=== PATIENT | male | born 1960 | race African-American/Black ===

== ENCOUNTER → 2019-07-28 | Emergency (ER) | payer MEDICAID ==
[~2019-07-28] VITALS: Ht 177.8 cm; Wt 65.0 kg
[~2019-07-28] MED LIST: SODIUM CHLORIDE 0.9% 1000ML BAG (SEPSIS BOLUS) IV ONE
[2019-07-28 19:11] VITALS: BP 104/60
== END ==
LOC: ER 19:09 → CANBEDREQ 07-29 17:08
DX: J10.1 Influenza due to other identified influenza virus with other respiratory manifestations (principal)
CPT/HCPCS: 99283; J7030; 71045; 80053; 82728; 83615; 83880; 84145; 84484; 85025

== ENCOUNTER 2020-01-15 12:55 | Inpatient (IN) | payer MEDICAID, OTHER ==
[~2020-01-15] VITALS: Ht 185.4 cm; Wt 50.0 kg
[2020-01-15] MEDS ORDERED: DEXTROSE 50% WATER 50ML SYRINGE IV ONE (13:15)
[2020-01-15] MEDS ORDERED: AZITHROMYCIN 500 MG in DEXT 5% WATER 250 ML IV ONE (13:30)
[2020-01-15] MEDS ORDERED: CEFTRIAXONE 1 G PREMIX 50 ML IV ONE (13:30)
[2020-01-15 14:09] LABS: HEMATOCRIT. 35.3 % (42.0-52.0); HEMOGLOBIN. 11.9 g/dL (14.0-18.0); MEAN CORPUSCULAR HEMOGLOBIN 34.4 pg (28.0-32.0); MEAN CORPUSCULAR VOLUME 102.3 fL (80.0-94.0); MEAN PLATELET VOLUME 8.4 fl (7.4-10.4); PLATELET 322 x1000/uL (130-400); RED BLOOD CELL COUNT 3.45 mill/uL (4.7-6.1); RED CELL DISTRIBUTION WIDTH 19.1 % (11.6-14.6)
[2020-01-15 14:13] LABS: CHLORIDE 100 mEq/L (98-107)
[2020-01-15 14:15] LABS: INR 1.2; PROTHROMBIN TIME 12.8 sec (9.6-11.0)
[2020-01-15 14:21] LABS: ETHANOL BLOOD < 10 mg/dL
[2020-01-15 14:44] LABS: PLATELET ESTIMATE NORMAL
[2020-01-15] MEDS ORDERED: FUROSEMIDE 20MG/2ML VIAL IVP ONE (15:30)
[2020-01-15] MEDS ORDERED: DEXTROSE 50% WATER 50ML SYRINGE IV NR (16:15)
[2020-01-15] MEDS ORDERED: DOCUSATE SODIUM 100MG CAPSULE PO PRN (16:30)
[2020-01-15] MEDS ORDERED: CLONIDINE 0.1MG TABLET PO PRN (16:30)
[2020-01-15] MEDS ORDERED: GUAIFENESIN 200MG/10ML SUGAR FREE UDC PO PRN (16:30)
[2020-01-15] MEDS ORDERED: ONDANSETRON HCL 4MG/2ML INJ IV PRN (16:30)
[2020-01-15] MEDS: DEXT 5%/0.45% NACL 1000ML 1,000 ML IV SCH (16:56)
[2020-01-15] MEDS: MULTIVITAMINS,THER W-MINERALS TABLET PO SCH (19:01)
[2020-01-15] MEDS: ENOXAPARIN 40MG/0.4ML SYR SUBCUT SCH (19:02)
[2020-01-15] MEDS: THIAMINE HCL 100MG TABLET PO SCH (19:02)
[2020-01-15 23:35] VITALS: BP 93/70
[2020-01-16] VITALS (10 sets, daily range): BP systolic 92–115; BP diastolic 61–87
[2020-01-16] MEDS: DEXT 5%/0.45% NACL 1000ML 1,000 ML IV SCH (06:01)
[2020-01-16 06:58] LABS: MEAN CORPUSCULAR HEMOGLOBIN 34.6 pg (28.0-32.0); MEAN CORPUSCULAR VOLUME 99.9 fL (80.0-94.0); PLATELET 290 x1000/uL (130-400); RED CELL DISTRIBUTION WIDTH 19.1 % (11.6-14.6)
[2020-01-16 07:10] LABS: CHLORIDE 100 mEq/L (98-107)
[2020-01-16] MEDS: FOLIC ACID 1MG TABLET PO SCH (09:14)
[2020-01-16] MEDS: THIAMINE HCL 100MG TABLET PO SCH (09:14)
[2020-01-16] MEDS: MULTIVITAMINS,THER W-MINERALS TABLET PO SCH (09:14)
[2020-01-16 09:19] LABS: PLATELET ESTIMATE NORMAL
[2020-01-16] MEDS ORDERED: POTASSIUM CHLORIDE 20MEQ TABLET SR PO SCH ×2 (10:45→11:00)
[2020-01-16] MEDS ORDERED: POTASSIUM CHLORIDE INJ 40 MEQ in DEXT 5% WATER 250 ML IV ONE (11:00)
[2020-01-16 11:16] LABS: BG BASE EXCESS 2.6 mmol/L (-2.0-2.0); BG CARBOXYHEMOGLOBIN 0.3 % (0.5-1.5); BG DEOXYHEMOGLOBIN 4.3 % (0.0-5.0); BG FRACTION INSPIRED OXYGEN 21; BG HCO3 ACT 25.6 mmol/L (22.0-26.0); BG METHEMOGLOBIN 0.1 % (0.0-1.5); BG OXYGEN SATURATION 95.7 % (92.0-98.5); BG OXYHEMOGLOBIN 95.3 % (94.0-97.0); BG PCO2 34.1 mmHg (35.0-45.0); BG PH 7.494 (7.350-7.450); BG PO2 75.8 mmHg (75.0-100.0); BG SAMPLE SITE RIGHT BRACHIAL; BG TOTAL HEMOGLOBIN 11.2 g/dL (12.0-18.0); BG VENT MODE ROOM AIR
[2020-01-16 12:16] LABS: LDL CHOLESTEROL 18 mg/dL (5-100)
[2020-01-16 12:18] LABS: HDL CHOLESTEROL 25 mg/dL (40-59)
[2020-01-16 12:19] LABS: T4 FREE 1.32 ng/dL (0.76-1.46)
[2020-01-16] MEDS: MEROPENEM 500 MG in SODIUM CHLORIDE 0.9% 50 ML IV SCH ×2 (12:28→22:22)
[2020-01-16] MEDS: NYSTATIN 100,000 UNITS/ML 5ML UDC SSW SCH ×2 (12:28→17:50)
[2020-01-16] MEDS: ACETAMINOPHEN 325MG TABLET PO PRN (12:29)
[2020-01-16] MEDS: LORAZEPAM 2MG/ML CPJ IV PRN (12:30)
[2020-01-16] MEDS ORDERED: POTASSIUM CHLORIDE INJ 40 MEQ in DEXT 5% WATER 250 ML IV SCH (12:30)
[2020-01-16] MEDS ORDERED: CEFTRIAXONE 1 G PREMIX 50 ML IV SCH (14:00)
[2020-01-16] MEDS: AZITHROMYCIN 500 MG in DEXT 5% WATER 250 ML IV SCH (17:49)
[2020-01-16] MEDS: ENOXAPARIN 40MG/0.4ML SYR SUBCUT SCH (17:50)
[2020-01-17] MEDS: NYSTATIN 100,000 UNITS/ML 5ML UDC SSW SCH ×4 (00:36→17:48)
[2020-01-17 04:00] VITALS: BP 118/85
[2020-01-17] MEDS: DEXT 5%/0.45% NACL 1000ML 1,000 ML IV SCH ×3 (04:51→21:46)
[2020-01-17] MEDS ORDERED: ACETAMINOPHEN 325MG TABLET PO NR (05:05)
[2020-01-17] MEDS: MEROPENEM 500 MG in SODIUM CHLORIDE 0.9% 50 ML IV SCH ×3 (05:58→21:46)
[2020-01-17 07:12] LABS: HEMATOCRIT. 29.9 % (42.0-52.0); HEMOGLOBIN. 10.3 g/dL (14.0-18.0); MEAN CORPUSCULAR HEMOGLOBIN 34.6 pg (28.0-32.0); MEAN CORPUSCULAR VOLUME 100.8 fL (80.0-94.0); MEAN PLATELET VOLUME 8.4 fl (7.4-10.4); PLATELET 245 x1000/uL (130-400); RED BLOOD CELL COUNT 2.96 mill/uL (4.7-6.1); RED CELL DISTRIBUTION WIDTH 18.6 % (11.6-14.6)
[2020-01-17 07:18] LABS: CHLORIDE 101 mEq/L (98-107)
[2020-01-17 07:27] LABS: CREATINE KINASE 215 IU/L (39-308); CREATINE KINASE MB FRACTION 2.1 ng/mL (0.5-3.6)
[2020-01-17 08:00] VITALS: BP 107/83
[2020-01-17] MEDS: THIAMINE HCL 100MG TABLET PO SCH (08:38)
[2020-01-17] MEDS: MULTIVITAMINS,THER W-MINERALS TABLET PO SCH (08:38)
[2020-01-17] MEDS: FOLIC ACID 1MG TABLET PO SCH (08:38)
[2020-01-17] MEDS: ACETAMINOPHEN 325MG TABLET PO PRN (08:51)
[2020-01-17 12:00] VITALS: BP 120/86
[2020-01-17 13:51] LABS: PLATELET ESTIMATE NORMAL
[2020-01-17 16:00] VITALS: BP 120/88
[2020-01-17] MEDS: AZITHROMYCIN 500 MG in DEXT 5% WATER 250 ML IV SCH (17:00)
[2020-01-17] MEDS: ENOXAPARIN 40MG/0.4ML SYR SUBCUT SCH (17:48)
[2020-01-17 20:46] VITALS: BP 121/98
[2020-01-17 23:34] VITALS: BP 101/77
[2020-01-18] MEDS: NYSTATIN 100,000 UNITS/ML 5ML UDC SSW SCH ×4 (01:02→17:00)
[2020-01-18 04:00] VITALS: BP 95/77
[2020-01-18] MEDS: MEROPENEM 500 MG in SODIUM CHLORIDE 0.9% 50 ML IV SCH ×3 (05:29→21:22)
[2020-01-18 08:00] VITALS: BP 123/86
[2020-01-18] MEDS: MULTIVITAMINS,THER W-MINERALS TABLET PO SCH (08:44)
[2020-01-18] MEDS: THIAMINE HCL 100MG TABLET PO SCH (08:44)
[2020-01-18] MEDS: FOLIC ACID 1MG TABLET PO SCH (08:44)
[2020-01-18 12:00] VITALS: BP 116/69
[2020-01-18] MEDS ORDERED: FUROSEMIDE 40MG/4ML VIAL IVP SCH (13:30)
[2020-01-18] MEDS ORDERED: SODIUM CHLORIDE 3% FOR INH 15ML VIAL NEB INH SCH (13:30)
[2020-01-18] MEDS: DEXT 5%/0.45% NACL 1000ML 1,000 ML IV SCH (14:30)
[2020-01-18] MEDS: MICAFUNGIN 100 MG in SODIUM CHLORIDE 0.9% 100 ML IV SCH (14:32)
[2020-01-18] MEDS: AZITHROMYCIN 500 MG in DEXT 5% WATER 250 ML IV SCH (14:32)
[2020-01-18 16:00] VITALS: BP 121/69
[2020-01-18] MEDS: ATOVAQUONE 750MG/5ML ORAL SYRINGE PO SCH (17:00)
[2020-01-18] MEDS: ENOXAPARIN 40MG/0.4ML SYR SUBCUT SCH (17:00)
[2020-01-18] MEDS: ACETAMINOPHEN 325MG TABLET PO PRN (17:19)
[2020-01-18 20:00] VITALS: BP 99/50
[2020-01-18 22:00] VITALS: BP 98/52
[2020-01-19] VITALS: BP 98/52
[2020-01-19] MEDS: DEXT 5%/0.45% NACL 1000ML 1,000 ML IV SCH ×2 (00:42→15:05)
[2020-01-19] MEDS: NYSTATIN 100,000 UNITS/ML 5ML UDC SSW SCH ×5 (00:42→23:00)
[2020-01-19] MEDS: ACETAMINOPHEN 325MG TABLET PO PRN ×3 (01:22→16:14)
[2020-01-19] MEDS: LORAZEPAM 2MG/ML CPJ IV PRN ×2 (01:22→22:38)
[2020-01-19 04:00] VITALS: BP 100/52
[2020-01-19] MEDS: MEROPENEM 500 MG in SODIUM CHLORIDE 0.9% 50 ML IV SCH ×2 (05:45→15:04)
[2020-01-19 08:00] VITALS: BP 147/96
[2020-01-19] MEDS: SODIUM CHLORIDE 3% FOR INH 4ML UD NEB INH SCH (09:00)
[2020-01-19] MEDS: ATOVAQUONE 750MG/5ML ORAL SYRINGE PO SCH ×2 (09:21→17:36)
[2020-01-19] MEDS: MULTIVITAMINS,THER W-MINERALS TABLET PO SCH (09:22)
[2020-01-19] MEDS: THIAMINE HCL 100MG TABLET PO SCH (09:22)
[2020-01-19] MEDS: ENOXAPARIN 40MG/0.4ML SYR SUBCUT SCH (09:22)
[2020-01-19] MEDS: FOLIC ACID 1MG TABLET PO SCH (09:22)
[2020-01-19] MEDS: FUROSEMIDE 40MG TABLET PO SCH (09:22)
[2020-01-19 12:00] VITALS: BP 113/82
[2020-01-19] MEDS: AZITHROMYCIN 500 MG in DEXT 5% WATER 250 ML IV SCH (15:04)
[2020-01-19] MEDS: MICAFUNGIN 100 MG in SODIUM CHLORIDE 0.9% 100 ML IV SCH (15:04)
[2020-01-19 16:00] VITALS: BP 103/82
[2020-01-19 20:00] VITALS: BP 99/56
[2020-01-19] MEDS: BUDESONIDE 0.5MG/2ML NEB HHN SCH (22:05)
[2020-01-19] MEDS: CEFEPIME 1,000 MG in DEXTROSE 5% WATER 50 ML IV SCH (22:38)
[2020-01-20] VITALS: BP 100/60
[2020-01-20] MEDS: ACETAMINOPHEN 325MG TABLET PO PRN ×2 (02:10→14:30)
[2020-01-20 04:00] VITALS: BP 118/78
[2020-01-20] MEDS: KETOROLAC 15MG/ML VIAL IV PRN ×2 (05:00→08:27)
[2020-01-20] MEDS: NYSTATIN 100,000 UNITS/ML 5ML UDC SSW SCH ×5 (05:01→23:13)
[2020-01-20] MEDS: DEXT 5%/0.45% NACL 1000ML 1,000 ML IV SCH ×2 (05:01→17:15)
[2020-01-20 08:00] VITALS: BP 110/85
[2020-01-20] MEDS: FUROSEMIDE 40MG TABLET PO SCH (08:26)
[2020-01-20] MEDS: FOLIC ACID 1MG TABLET PO SCH (08:26)
[2020-01-20] MEDS: MULTIVITAMINS,THER W-MINERALS TABLET PO SCH (08:26)
[2020-01-20] MEDS: ATOVAQUONE 750MG/5ML ORAL SYRINGE PO SCH ×2 (08:26→17:15)
[2020-01-20] MEDS: THIAMINE HCL 100MG TABLET PO SCH (08:26)
[2020-01-20 09:06] LABS: ABSOLUTE LYMPHOCYTES 0.3 x10E3/uL (0.7-3.1); ABSOLUTE MONOCYTES 0.2 x10E3/uL (0.1-0.9); ABSOLUTE NEUTROPHILS 3.7 x10E3/uL (1.4-7.0); BASOPHILS 0 % (Not Estab.); HEMATOCRIT 31.6 % (37.5-51.0); HEMATOLOGY COMMENT Note: (.); IMMATURE GRANULOCYTES 1 % (Not Estab.); LYMPHOCYTES 6 % (Not Estab.); MEAN CORPUSCULAR HEMOGLOBIN 32.6 pg (26.6-33.0); MEAN CORPUSCULAR HGB CONC. 34.8 g/dL (31.5-35.7); MEAN CORPUSCULAR VOLUME 94 fL (79-97); MONOCYTES 4 % (Not Estab.); NEUTROPHILS 88 % (Not Estab.); PLATELETS 272 x10E3/uL (150-450); RBC 3.37 x10E6/uL (4.14-5.80); RED CELL DISTRIBUTION WIDTH 16.1 % (11.6-15.4); WBC 4.1 x10E3/uL (3.4-10.8)
[2020-01-20] MEDS: CEFEPIME 1,000 MG in DEXTROSE 5% WATER 50 ML IV SCH ×2 (09:09→23:06)
[2020-01-20 10:07] LABS: CHLORIDE 101 mEq/L (98-107)
[2020-01-20 10:14] LABS: BASOPHILS % 1.1 % (0.0-2.0); EOSINOPHILS % 2.4 % (0.0-5.0); HEMATOCRIT. 28.4 % (42.0-52.0); HEMOGLOBIN. 9.7 g/dL (14.0-18.0); LYMPHOCYTES % 8.2 % (20.0-50.0); MEAN CORPUSCULAR HEMOGLOBIN 33.9 pg (28.0-32.0); MEAN CORPUSCULAR VOLUME 99.7 fL (80.0-94.0); MEAN PLATELET VOLUME 9.2 fl (7.4-10.4); MONOCYTES % 11.8 % (2.0-8.0); NEUTROPHILS % 76.5 % (40.0-76.0); PLATELET 210 x1000/uL (130-400); RED BLOOD CELL COUNT 2.85 mill/uL (4.7-6.1); RED CELL DISTRIBUTION WIDTH 18.8 % (11.6-14.6)
[2020-01-20] MEDS: BUDESONIDE 0.5MG/2ML NEB HHN SCH ×2 (10:19→22:01)
[2020-01-20 12:00] VITALS: BP 124/89
[2020-01-20] MEDS ORDERED: SODIUM CHLORIDE 10% FOR INH 15ML VIAL NEB INH NR (13:00)
[2020-01-20 13:06] LABS: % CD 3 POS. LYMPHOCYTES 69.7 % (57.5-86.2); % CD 4 POS. LYMPHOCYTES 6.3 % (30.8-58.5); % CD 8 POS. LYMPH 62.2 % (12.0-35.5); ABSOLUTE CD 3 209 /uL (622-2402); ABSOLUTE CD 4 HELPER 19 /uL (359-1519); ABSOLUTE CD 8 SUPPRESSOR 187 /uL (109-897)
[2020-01-20] MEDS: MICAFUNGIN 100 MG in SODIUM CHLORIDE 0.9% 100 ML IV SCH (13:16)
[2020-01-20] MEDS: AZITHROMYCIN 500 MG in DEXT 5% WATER 250 ML IV SCH (14:30)
[2020-01-20 16:00] VITALS: BP 104/78
[2020-01-20] MEDS: ENOXAPARIN 40MG/0.4ML SYR SUBCUT SCH (17:15)
[2020-01-20] MEDS: POTASSIUM CHLORIDE 20MEQ TABLET SR PO SCH (17:16)
[2020-01-20] MEDS: MAGNESIUM OXIDE 400MG TABLET PO SCH (17:16)
[2020-01-20 20:00] VITALS: BP 106/81
[2020-01-20] MEDS: SODIUM CHLORIDE 3% FOR INH 4ML UD NEB INH SCH (22:05)
[2020-01-21] VITALS: BP 96/74
[2020-01-21] MEDS: DEXT 5%/0.45% NACL 1000ML 1,000 ML IV SCH ×2 (01:20→18:35)
[2020-01-21 04:00] VITALS: BP 101/80
[2020-01-21] MEDS: NYSTATIN 100,000 UNITS/ML 5ML UDC SSW SCH ×2 (05:07→11:16)
[2020-01-21 08:00] VITALS: BP 100/61
[2020-01-21] MEDS: ATOVAQUONE 750MG/5ML ORAL SYRINGE PO SCH ×2 (08:27→17:17)
[2020-01-21] MEDS: MULTIVITAMINS,THER W-MINERALS TABLET PO SCH (08:28)
[2020-01-21] MEDS: MAGNESIUM OXIDE 400MG TABLET PO SCH (08:29)
[2020-01-21] MEDS: FUROSEMIDE 40MG TABLET PO SCH (08:29)
[2020-01-21] MEDS: POTASSIUM CHLORIDE 20MEQ TABLET SR PO SCH (08:31)
[2020-01-21] MEDS: FOLIC ACID 1MG TABLET PO SCH (08:33)
[2020-01-21] MEDS: KETOROLAC 15MG/ML VIAL IV PRN ×2 (08:33→17:18)
[2020-01-21] MEDS: THIAMINE HCL 100MG TABLET PO SCH (08:33)
[2020-01-21] MEDS: CEFEPIME 1,000 MG in DEXTROSE 5% WATER 50 ML IV SCH ×2 (11:16→22:07)
[2020-01-21 12:00] VITALS: BP 104/82
[2020-01-21] MEDS: MICAFUNGIN 100 MG in SODIUM CHLORIDE 0.9% 100 ML IV SCH (12:48)
[2020-01-21] MEDS: AZITHROMYCIN 500 MG in DEXT 5% WATER 250 ML IV SCH (14:00)
[2020-01-21 16:00] VITALS: BP 96/51
[2020-01-21] MEDS: ENOXAPARIN 40MG/0.4ML SYR SUBCUT SCH (17:17)
[2020-01-21 20:00] VITALS: BP 115/80
[2020-01-22] VITALS: BP 109/79
[2020-01-22 08:00] VITALS: BP 100/60
[2020-01-22] MEDS: ATOVAQUONE 750MG/5ML ORAL SYRINGE PO SCH ×2 (09:55→16:33)
[2020-01-22] MEDS: FUROSEMIDE 40MG TABLET PO SCH (09:56)
[2020-01-22] MEDS: FOLIC ACID 1MG TABLET PO SCH (09:56)
[2020-01-22] MEDS: MULTIVITAMINS,THER W-MINERALS TABLET PO SCH (09:56)
[2020-01-22] MEDS: POTASSIUM CHLORIDE 20MEQ TABLET SR PO SCH (09:56)
[2020-01-22] MEDS: MAGNESIUM OXIDE 400MG TABLET PO SCH (09:56)
[2020-01-22] MEDS: CEFEPIME 1,000 MG in DEXTROSE 5% WATER 50 ML IV SCH ×2 (09:56→21:38)
[2020-01-22] MEDS: DEXT 5%/0.45% NACL 1000ML 1,000 ML IV SCH ×2 (09:56→21:38)
[2020-01-22] MEDS: THIAMINE HCL 100MG TABLET PO SCH (09:57)
[2020-01-22 12:00] VITALS: BP 110/60
[2020-01-22] MEDS: MICAFUNGIN 100 MG in SODIUM CHLORIDE 0.9% 100 ML IV SCH (12:40)
[2020-01-22] MEDS: KETOROLAC 15MG/ML VIAL IV PRN (12:43)
[2020-01-22 16:00] VITALS: BP 110/60
[2020-01-22] MEDS: ENOXAPARIN 30MG/0.3ML SYR SUBCUT SCH (16:33)
[2020-01-22] MEDS: ACETAMINOPHEN 325MG TABLET PO PRN (16:50)
[2020-01-22 20:00] VITALS: BP 126/83
[2020-01-23] VITALS: BP 134/84
[2020-01-23 04:00] VITALS: BP 127/82
[2020-01-23 08:00] VITALS: BP 100/60
[2020-01-23] MEDS: ATOVAQUONE 750MG/5ML ORAL SYRINGE PO SCH ×2 (09:33→16:22)
[2020-01-23] MEDS: MULTIVITAMINS,THER W-MINERALS TABLET PO SCH (09:34)
[2020-01-23] MEDS: FOLIC ACID 1MG TABLET PO SCH (09:34)
[2020-01-23] MEDS: MAGNESIUM OXIDE 400MG TABLET PO SCH (09:34)
[2020-01-23] MEDS: THIAMINE HCL 100MG TABLET PO SCH (09:34)
[2020-01-23] MEDS: FUROSEMIDE 40MG TABLET PO SCH (09:34)
[2020-01-23] MEDS: POTASSIUM CHLORIDE 20MEQ TABLET SR PO SCH (09:39)
[2020-01-23] MEDS ORDERED: AZITHROMYCIN 600 MG TABLET PO SCH (09:45)
[2020-01-23 12:00] VITALS: BP 136/76
[2020-01-23] MEDS: KETOROLAC 15MG/ML VIAL IV PRN (14:48)
[2020-01-23] MEDS: DEXT 5%/0.45% NACL 1000ML 1,000 ML IV SCH (14:49)
[2020-01-23 15:43] LABS: QFT MITOGEN VALUE 0.09 IU/mL (.); QFT TB GOLD PLUS Indeterminate (Negative); QFT TB1 AG VALUE 0.03 IU/mL (.)
[2020-01-23 16:00] VITALS: BP_SYST 100; BP_SYST 112; BP_DIAS 60; BP_DIAS 62
[2020-01-23] MEDS: ENOXAPARIN 30MG/0.3ML SYR SUBCUT SCH (16:22)
[2020-01-23 20:00] VITALS: BP 119/89
[2020-01-24] VITALS: BP 123/81
[2020-01-24 04:00] VITALS: BP 129/86
[2020-01-24] MEDS: DEXT 5%/0.45% NACL 1000ML 1,000 ML IV SCH ×2 (04:12→13:50)
[2020-01-24 08:00] VITALS: BP 128/79
[2020-01-24] MEDS: POTASSIUM CHLORIDE 20MEQ TABLET SR PO SCH (08:38)
[2020-01-24] MEDS: FOLIC ACID 1MG TABLET PO SCH (08:38)
[2020-01-24] MEDS: THIAMINE HCL 100MG TABLET PO SCH (08:38)
[2020-01-24] MEDS: MAGNESIUM OXIDE 400MG TABLET PO SCH (08:38)
[2020-01-24] MEDS: FUROSEMIDE 40MG TABLET PO SCH (08:38)
[2020-01-24] MEDS: MULTIVITAMINS,THER W-MINERALS TABLET PO SCH (08:38)
[2020-01-24 08:49] LABS: HEMATOCRIT. 28.5 % (42.0-52.0); HEMOGLOBIN. 9.8 g/dL (14.0-18.0); MEAN CORPUSCULAR HEMOGLOBIN 34.7 pg (28.0-32.0); MEAN CORPUSCULAR VOLUME 100.6 fL (80.0-94.0); RED BLOOD CELL COUNT 2.83 mill/uL (4.7-6.1); RED CELL DISTRIBUTION WIDTH 19.3 % (11.6-14.6)
[2020-01-24 09:03] LABS: CHLORIDE 101 mEq/L (98-107)
[2020-01-24 09:52] LABS: NUCLEATED RED BLOOD CELLS 1 /100 WBC; PLATELET ESTIMATE NORMAL
[2020-01-24 09:53] LABS: MEAN PLATELET VOLUME 9.6 fl (7.4-10.4); PLATELET 237 x1000/uL (130-400)
[2020-01-24 12:00] VITALS: BP 130/79
[2020-01-24] MEDS ORDERED: CLIN300C11 PO (15:20)
[2020-01-24] MEDS ORDERED: BICT1TAB PO (15:20)
[2020-01-24] MEDS ORDERED: LEVO750T46 MT (15:20)
== END 2020-01-24 17:10 | disposition home or self-care (01) | DRG 890 ==
LOC: ER 12:55 → 5EST 15:49 → EDBEDREQ 15:50 → EDBEDREQSVC 15:50 → EDBEDREQTM 15:50 → ENRESERV 21:46 → 5EST 01-16 02:48 → 7EST 01-16 13:55 → 8WST 01-18 10:56
PROVIDERS: ADMIT Hospitalist; ATTEND Hospitalist
DX: A41.52 Sepsis due to Pseudomonas (principal); E43 Unspecified severe protein-calorie malnutrition; J96.01 Acute respiratory failure with hypoxia; B37.0 Candidal stomatitis; E87.1 Hypo-osmolality and hyponatremia; E87.6 Hypokalemia; G92 Toxic encephalopathy; I25.10 Atherosclerotic heart disease of native coronary artery without angina pectoris; J44.0 Chronic obstructive pulmonary disease with (acute) lower respiratory infection; R65.20 Severe sepsis without septic shock; F32.9 Major depressive disorder, single episode, unspecified; E87.70 Fluid overload, unspecified; E16.2 Hypoglycemia, unspecified; B20 Human immunodeficiency virus [HIV] disease; D64.9 Anemia, unspecified; B19.10 Unspecified viral hepatitis B without hepatic coma; I50.22 Chronic systolic (congestive) heart failure; J15.1 Pneumonia due to Pseudomonas; K70.9 Alcoholic liver disease, unspecified; Z20.828 Contact with and (suspected) exposure to other viral communicable diseases; Z68.1 Body mass index [BMI] 19.9 or less, adult; Z88.1 Allergy status to other antibiotic agents; Z88.2 Allergy status to sulfonamides; I25.2 Old myocardial infarction; Z79.899 Other long term (current) drug therapy; R74.01 Elevation of levels of liver transaminase levels
CPT/HCPCS: 36415; 36600; 71045; 71250; 80053; 80061; 80320; 82375; 82550; 82553; 82805; 82962; 83036; 83605; 83735; 83880; 84145; 84439; 84443; 84484; 85025; 85379; 85651; 86141; 86359; 86360; 86480; 86606; 86645; 87070; 87077; 87106; 87116; 87186; 87635; 87899; 93005; 93306; 93308; 94640; 96365; 99291; C1893; J0456; J0692; J0696; J1650; J1885; J1940; J2060; J2185; J2248; J3480; J7050; J7060; J7131; J7626; G0480